=== PATIENT | female | born 1970 | race Caucasian/White ===

== ENCOUNTER → 2016-07-07 | Outpatient (CLI) | payer OTHER ==
[~2016-07-07] MED LIST: BACTRIM DS TABL1 TA1 PO; EFFEXOR XR150 MG PO; GUAIFENESIN W-120 ML PO; IBUPROFEN800 MG PO; KEFLEX500 M1 PO; NAPROSYN-EC500 M1 DOB; NORFLEX100 MG PO; OTC ALLERGY MED; TYLENOL #3 PO
--- NOTE | ~2016-07-07 | CR150 ---
[facility] A Service of [facility] & [facility] RADIOLOGY TEXT RESULTS PATIENT: PRIMITIVO LUQUE LOCATION: [facility] : [birth year] UNIT #: [id number] AGE: [address]: Aaron Marie MD SEX: F ORDER DR: [id number] [address] [address] [id number] O MR#: [id number] Acc #: [id number] NAME: PRIMITIVO LUQUE : 1970 SEX: F STUDY DATE/TIME: 07/07/2016 13:51 UNIT: [facility] ROOM: STUDY DESCRIPTION: CR Hip Min 2 Views Lt Attending Physician: Aaron Marie M.D. Referring Physician: Aaron Marie M.D. Ordering Physician: Arabella Zarate Aprn Primary Care Physician: Donato Colon M.D. MEDICAL IMAGING REPORT This report is preliminary unless electronic signature is present. EXAM Left hip, 07/07/2016. HISTORY 45-year-old woman with bilateral hip pain, left greater than right. FINDINGS AP pelvis with frog-leg lateral view of the left hip demonstrates preservation of the joint space. There are no cystic erosions. I see no calcium deposition. Mineralization is preserved and cortex intact. Mild degenerative findings noted in the left sacroiliac joint. IMPRESSION Negative left hip. Mild degenerative arthropathy left sacroiliac joint. Dictated by... Leobardo Sal M.D. THIS IS AN ELECTRONICALLY VERIFIED REPORT Leobardo Sal M.D. at 07/07/2016 3:57 PM Danielito TD: 07/07/2016 15:02 JOB #: [id number] MEDICAL IMAGING REPORT Page 1 of 1
--- NOTE | ~2016-07-07 | CR182 ---
[facility]. [facility] A Service of [facility] & [facility] RADIOLOGY TEXT RESULTS PATIENT: PRIMITIVO LUQUE LOCATION: [facility] : [birth year] UNIT #: [id number] AGE: [address]: Aaron Marie MD SEX: F ORDER DR: [id number] [address] [address] [id number] O MR#: [id number] Acc #: [id number] NAME: PRIMITIVO LUQUE : 1970 SEX: F STUDY DATE/TIME: 07/07/2016 13:45 UNIT: [facility] ROOM: STUDY DESCRIPTION: CR Lumbar Spine Bending Only 2 Attending Physician: Aaron Marie M.D. Referring Physician: Aaron Marie M.D. Ordering Physician: Arabella Zarate Aprn Primary Care Physician: Donato Colon M.D. MEDICAL IMAGING REPORT This report is preliminary unless electronic signature is present. EXAM Lumbar spine flexion/extension views HISTORY Back pain since May. No specific injury. FINDINGS Flexion/extension lateral views lumbar spine demonstrates mild sclerosis and hypertrophic changes at the anterior disc margins of all lumbar levels. No disc space narrowing identified. No fracture. No spondylolysis OR spondylolisthesis. Normal lumbar motion on flexion/extension. Posterior elements unremarkable. IMPRESSION Mild degenerative disc changes at all lumbar levels with minimal endplate sclerosis and anterior hypertrophic changes. No disc space narrowing and no abnormal motion identified. Dictated by... Trinidad Bartlett M.D. THIS IS AN ELECTRONICALLY VERIFIED REPORT Trinidad Bartlett M.D. at 07/09/2016 10:35 PM RODRIGUEZ/serena TD: 07/07/2016 16:35 JOB #: [id number] MEDICAL IMAGING REPORT Page 1 of 1
--- NOTE | ~2016-07-07 | CR151 ---
[facility]. [facility] A Service of [facility] & [facility] RADIOLOGY TEXT RESULTS PATIENT: PRIMITIVO LUQUE LOCATION: [facility] : 68 UNIT #: [id number] AGE: [address]: Aaron Marie MD SEX: F ORDER DR: [id number] [place] [id number] O MR#: [id number] Acc #: [id number] NAME: PRIMITIVO LUQUE : 1970 SEX: F STUDY DATE/TIME: 07/07/2016 13:51 UNIT: [facility] ROOM: STUDY DESCRIPTION: CR Hip Min 2 Views Rt Attending Physician: Aaron Marie M.D. Referring Physician: Aaron Marie M.D. Ordering Physician: Arabella Zarate Aprn Primary Care Physician: Donato Colon M.D. MEDICAL IMAGING REPORT This report is preliminary unless electronic signature is present. EXAM Right hip 07/07/2016 HISTORY 45-year-old woman with bilateral hip pain. Symptoms since May. Patient indicates left lower extremity numbness. Back pain. COMPARISON None. FINDINGS AP pelvis with frog-leg lateral view of the right hip demonstrates preservation of the joint space with no joint space narrowing. There are no cystic erosions and no calcium deposition. Mineralization is normal and the cortex is intact. Soft tissues appear normal. IMPRESSION Negative right hip. Dictated by... Leobardo Sal M.D. THIS IS AN ELECTRONICALLY VERIFIED REPORT Leobardo Sal M.D. at 07/07/2016 3:57 PM SRINIVAS/lashae TD: 07/07/2016 15:03 JOB #: [id number] MEDICAL IMAGING REPORT Page 1 of 1
== END | disposition home or self-care (01) ==
LOC: SRAD 13:25
DX: M54.5 Low back pain (principal); M47.898 Other spondylosis, sacral and sacrococcygeal region; M51.36 Other intervertebral disc degeneration, lumbar region; M25.552 Pain in left hip; M25.551 Pain in right hip
CPT/HCPCS: 72120; 73502

== ENCOUNTER 2016-11-01 14:27 | Emergency (ER) | payer OTHER ==
[~2016-11-01] VITALS: Ht 160 cm; Wt 77.1 kg
== END 2016-11-01 16:09 | disposition home or self-care (01) ==
LOC: SED 14:27
DX: S46.911A Strain of unspecified muscle, fascia and tendon at shoulder and upper arm level, right arm, initial encounter (principal); S56.911A Strain of unspecified muscles, fascia and tendons at forearm level, right arm, initial encounter; G43.909 Migraine, unspecified, not intractable, without status migrainosus; X50.9XXA Other and unspecified overexertion or strenuous movements or postures, initial encounter; Y93.89 Activity, other specified; Y92.69 Other specified industrial and construction area as the place of occurrence of the external cause; Y99.0 Civilian activity done for income or pay
CPT/HCPCS: 96372; 99283; J1885